=== PATIENT | female | born 1950 | race Caucasian/White ===

== ENCOUNTER 2020-12-03 23:10 | Inpatient (IN) | payer MEDICARE, SELFPAY ==
[2020-12-03 23:12] VITALS: BP 159/63; PULSE 72; RESP 17; TEMP 36.9; O2SAT 99; BMI 32.5
[2020-12-03 23:18] VITALS: BP 159/63; PULSE 70; RESP 18; O2SAT 99
[2020-12-03 23:19] VITALS: PULSE 71
--- NOTE | 2020-12-03 23:25 | XRR_ITS ---
PROCEDURE INFORMATION: Exam: XR Left Hip Exam date and time: 12/03/2020 11:30 PM Age: 70 years old Clinical indication: Injury or trauma; Fall; Blunt trauma (contusions or hematomas); Left; Prior surgery; Surgery type: Lt hip TECHNIQUE: Imaging protocol: XR Left hip. Views: 1 view hip with pelvis when performed. COMPARISON: No relevant prior studies available. FINDINGS: Bones/joints: Status post left hip arthroplasty. No fracture of the proximal femur. Soft tissues: No acute abnormality of the soft tissues. XR/XR hip LT 1V wo/w pel [id number] IMPRESSION: 1. Status post left hip arthroplasty. No radiographic evidence of prosthetic loosening. 2. No fracture of the proximal femur.
--- NOTE | 2020-12-03 23:25 | ED_ITS ---
Documented by User: OSCAR Patel 12/07/20 07:03 HPI - Fall General: Chief Complaint: Extremity Injury, Lower Stated Complaint: left knee pain Time Seen by Provider: 12/03/20 23:12 Source: patient Mode of arrival: EMS Limitations: no limitations History of Present Illness: HPI Narrative: Patient is a very nice 70-year-old female who arrives to the ED today via EMS for evaluation following a fall. Patient tells me she walked out into her back deck and states the rain had made the deck slippery and she slipped and fell. Reports she twisted and landed onto her left leg and it bent backwards . She states she then stuck her head. No LOC. She states she noticed a headache and some neck pain earlier today prior to the fall but she is not having either now. Patient is tearful as she attended the family night for her mother's today and has her scheduled for tomorrow. PMH significant for COPD, obesity, CAD, DM, non-alcoholic hepatic cirrhosis, CHF, anemia thought to be secondary to esophageal varices Current medications include escitalopram, nadolol, ferrous sulfate, furosemide, flexeril, metformin, spironolactone, oxycodone, atorvastatin, requip, insulin, and esomeprazole complaint: fall Onset (ago): hour(s) Fall from: standing Place fall occurred: home Loss of consciousness: None Prolonged down time: no Symptoms prior to fall: none Context: tripped/slipped (wet surface ) Location of injury - extremities: Right: knee Associated symptoms-after fall: Reports headache(s) (states she had a LING today prior to the fall); Denies chest pain, lightheadedness or neck pain Review of Systems Const: Denies: fever(s) Eyes: Denies: change in vision Card: Denies: chest pain, palpitations, lightheadedness, syncope or pre- syncope Resp: Denies: dyspnea GI: Denies: nausea or vomiting Musc: Reports: joint pain (R knee) and joint swelling (R knee); Denies: neck pain or back pain Neuro: Reports: headache(s) (states she had a LING today prior to the fall); Denies: numbness in extremities, sensory changes or frequent falls FOR[facility], [facility] ED PFSH: Medical History (Updated 12/09/20 @ 00:01 by ) CAD (coronary artery disease) Chronic iron deficiency anemia Congestive heart failure Femoral distal fracture Gastric varices History of esophageal varices Hypertension 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 Supracondylar fracture of left femur Thrombocytopenia Surgical History (Updated 12/06/20 @ 07:44 by Marcio Barker MD) History of appendectomy History of bilateral hip replacements History of cholecystectomy History of coronary artery bypass graft x 1 History of left knee replacement History of total hysterectomy Family History (Updated 12/04/20 @ 03:05 by Gabriel Anderson MD) Mother CAD (coronary artery disease) Diabetes CHF (congestive heart failure) Family/Other Cancer Social History (Updated 12/04/20 @ 03:05 by Gabriel Anderson MD) Smoking and tobacco status: never smoked Second hand smoke exposure: No Alcohol intake: never Physical Exam Const: COMMON NORMALS: no acute distress, patient oriented x3, no limitations and alert GENERAL APPEARANCE: cooperative NUTRITIONAL APPEARANCE: obese ORIENTATION/CONSCIOUSNESS: Yes awake, Yes oriented to person, Yes oriented to place and Yes oriented to time HENMT: COMMON NORMALS: normocephalic HEAD & SCALP: normocephalic and other (small posterior hematoma) Eye: COMMON NORMALS: Equal, round and reactive pupils present and EOMs intact bilaterally GENERAL EYE: appearance normal, both eyes and all related structures PUPIL: Yes Equal, round and reactive pupils present Neck/C-Spine: COMMON NORMALS: full ROM GENERAL: Yes normal visual inspection CERVICAL SPINE: Yes cervical ROM normal, No pain with cervical ROM and No Cervical spine tenderness Chest: COMMONS NORMALS: normal inspection of the chest and normal palpation of entire chest wall Resp: COMMON NORMALS: normal respiratory effort and clear to auscultation bi laterally AUSCULTATION: clear to auscultation bilaterally Cardio: COMMON NORMALS: regular rate and regular rhythm RATE: regular rate RHYTHM: regular rhythm Back/Pelvis: COMMON NORMALS: thoracic and lumbar spine normal to inspection, no thoracic nor lumbar tenderness and thoraco-lumbar ROM normal Extremity: NARRATIVE EXTREMITY EXAM: pt with tenderness to mid to distal femur and throughout her R knee joint; there is diffuse swelling and edema around the R knee; incision present from prior TKA; no hip pain present; distal pulses present and equal bilaterally; sensory intact. Neuro: SABRINA COMA SCALE: document GCS findings Sabrina coma scale eye opening: Spontaneous Sabrina coma scale verbal response: Orientated Sabrina coma scale motor response: Obey commands Sabrina coma scale total score: 15 COMMON NORMALS: patient oriented x3 SENSORIUM/ORIENTATION: Yes alert, Yes oriented to person, Yes oriented to place and Yes oriented to time Skin: COMMON NORMALS: no rashes or lesions noted GENERAL SKIN EXAM: no rashes or lesions noted Course Consultations: Consultation #1: Dr. Abreu spoke to Dr. Barker who will consult on patient while in hospital Consultation #2: Dr. Abreu spoke to Dr. Anderson who accepts admission Vital Signs: Vital signs: Vital Signs Temperature 98.0 F 12/08/20 07:18 Pulse Rate 78 12/08/20 12:21 Respiratory Rate 16 12/08/20 12:21 Blood Pressure 143/68 12/08/20 07:18 Pulse Oximetry 97 12/08/20 12:21 MDM - Fall Imaging Data^: CT Head: Radiologist's impression: [address] [address] [address] Scan Report Signed Patient: tari campos Unit #: [id number] : 1950 Age/Sex: 70 / F ADM Date: 12/03/20 Loc: ER Room/Bed: Attending Dr: Ordering Provider/Ordering MD: Wendy Mckeon Date of Service: 12/04/20 Procedure(s): CT head wo con* [id number] Accession Number(s): [id number] Report Number: [id number] PROCEDURE INFORMATION: Exam: CT Head Without Contrast Exam date and time: 12/04/2020 12:29 AM Age: 70 years old Clinical indication: Injury or trauma; Fall; Blunt trauma (contusions or hematomas) TECHNIQUE: Imaging protocol: Computed tomography of the head without contrast. Radiation optimization: All CT scans at this facility use at least one of these dose optimization techniques: automated exposure control; mA and/or kV adjustment per patient size (includes targeted exams where dose is matched to clinical indication); or iterative reconstruction. COMPARISON: No relevant prior studies available. RADIATION DOSE METRICS: Total DLP (mGy-cm): 794.77 FINDINGS: Brain: Mild parenchymal volume loss noted. There is decreased attenuation of the periventricular white matter, consistent with mild chronic microangiopathic white matter disease. No intracranial hemorrhage noted. No parenchymal edema identified. Cerebral ventricles: No ventriculomegaly. Bones/joints: Unremarkable. No acute fracture. Paranasal sinuses: Visualized sinuses are unremarkable. No fluid levels. Mastoid air cells: Unremarkable as visualized. No mastoid effusion. Soft tissues: Unremarkable. CT/CT head wo con* [id number] IMPRESSION: No acute intracranial abnormality demonstrated. Radiation Dose CTDIVOL = (mGy): DLP = 794.77 (mGy-cm) Dictated By: Eliseo Delvalle MD Signed By: Eliseo Delvalle MD Signed Date/Time: 12/04/2058 DD/ CT cervical: Radiologist's impression: [address] [address] [address] Scan Report Signed Patient: tari campos Unit #: [id number] : 1950 Acct#:OV [id number] Age/Sex: 70 / F ADM Date: 12/03/20 Loc: ER Room/Bed: Attending Dr: Ordering Provider/Ordering MD: Wendy Mckeon Date of Service: 12/04/20 Procedure(s): CT cervical spin wo con* [id number] Accession Number(s): [id number] Report Number: [id number] PROCEDURE INFORMATION: Exam: CT Cervical Spine Without Contrast Exam date and time: 12/04/2020 12:29 AM Age: 70 years old Clinical indication: Injury or trauma; Fall; Blunt trauma TECHNIQUE: Imaging protocol: Computed tomography images of the cervical spine without contrast. Radiation optimization: All CT scans at this facility use at least one of these dose optimization techniques: automated exposure control; mA and/or kV adjustment per patient size (includes targeted exams where dose is matched to clinical indication); or iterative reconstruction. COMPARISON: No relevant prior studies available. RADIATION DOSE METRICS: Total DLP (mGy-cm): 914.25 FINDINGS: Bones/joints: Vertebral body heights are preserved. No compression fractures are noted. Vertebral alignment is physiologic. Degenerative facet joint changes. Discs/Spinal canal/Neural foramina: Disc heights are preserved. No severe intervertebral disc narrowing. No severe spinal canal stenosis at any level. Lungs: The lung apices are unremarkable. Pleural spaces: No apical pneumothorax demonstrated. Soft tissues: The soft tissues appear unremarkable. CT/CT cervical spin wo con* [id number] IMPRESSION: 1. Mild degenerative changes of the cervical spine are noted. 2. No acute abnormality demonstrated. Radiation Dose CTDIVOL = (mGy): DLP = 914.25 (mGy-cm) Dictated By: Eliseo Delvalle MD Signed By: Eliseo Delvalle MD Signed Date/Time: 12/04/2057 DD/ XR L hip/femur : Radiologist's impression: [address] [address] XRay Report Signed Patient: tari campos Unit #: [id number] : 1950 Age/Sex: 70 / F ADM Date: 12/03/20 Loc: ER Room/Bed: Attending Dr: Ordering Provider/Ordering MD: Wendy Mckeon Date of Service: 12/03/20 Procedure(s): XR knee LT 3V* [id number] Accession Number(s): [id number] Report Number: [id number] PROCEDURE INFORMATION: Exam: XR Left Knee Exam date and time: 12/03/2020 11:30 PM Age: 70 years old Clinical indication: Injury or trauma; Fall; Blunt trauma; Left; Prior surgery; Surgery type: Lt knee; Additional info: Fall/pain TECHNIQUE: Imaging protocol: XR Left knee. Views: 3 views. COMPARISON: No relevant prior studies available. FINDINGS: Bones/joints: Status post left knee arthroplasty. Acute displaced, mildly comminuted fracture of the distal shaft of the femur. There is approximately 3 cm of separation and overlap of the major distal fracture fragments. Proximal tibia and proximal fibula appear intact. Soft tissues: Soft tissue edema noted. XR/XR knee LT 3V* [id number] IMPRESSION: 1. Status post left knee arthroplasty. 2. Acute displaced mildly comminuted fracture of the distal shaft of the femur. Dictated By: Eliseo Delvalle MD Signed By: Eliseo Delvalle MD Signed Date/Time: 12/04/2041 DD/ Discharge Plan Discharge Patient Disposition: Admitted As Inpatient Admit Provider: Marcio Barker Clinical Impression: Supracondylar fracture of left femur Condition: Stable Discharge Diet: Diabetic Discharge Activity: As per PT/OT instructions Coding Level of Care Code ED Wearing Apparel Shaker for Chg Fwd Exam Comprehensive Documented by User: Rajat Abreu DO 12/17/20 18:49 HPI - Fall General: Chief Complaint: Extremity Injury, Lower Stated Complaint: left knee pain Time Seen by Provider: 12/03/20 23:12 PFSH ED PFSH: Medical History (Updated 12/09/20 @ 00:01 by ) CAD (coronary artery disease) Chronic iron deficiency anemia Congestive heart failure Femoral distal fracture Gastric varices History of esophageal varices Hypertension 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 Supracondylar fracture of left femur Thrombocytopenia Surgical History (Updated 12/06/20 @ 07:44 by Marcio Barker MD) History of appendectomy History of bilateral hip replacements History of cholecystectomy History of coronary artery bypass graft x 1 History of left knee replacement History of total hysterectomy Family History (Updated 12/04/20 @ 03:05 by Gabriel Anderson MD) Mother CAD (coronary artery disease) Diabetes CHF (congestive heart failure) Family/Other Cancer Social History (Updated 12/04/20 @ 03:05 by Gabriel Anderson MD) Smoking and tobacco status: never smoked Second hand smoke exposure: No Alcohol intake: never Course Vital Signs: Vital signs: Vital Signs Temperature 98.0 F 12/08/20 07:18 Pulse Rate 78 12/08/20 12:21 Respiratory Rate 16 12/08/20 12:21 Blood Pressure 143/68 12/08/20 07:18 Pulse Oximetry 97 12/08/20 12:21 MDM - Fall MDM Narrative: Medical decision making narrative: 70-year-old female seen by Mrs. MckeonANNY Vann. I agree with her history, evaluation, and treatment. This lady was found to have a periprosthetic distal femur fracture on x-ray. Her hemoglobin is 7.4 she'll be admitted to the hospitalist service, with orthopedic consultation both of been consulted from the ER, and have accepted. Discharge Plan Discharge Patient Disposition: Admitted As Inpatient Admit Provider: Marcio Barker Clinical Impression: Supracondylar fracture of left femur Condition: Stable Discharge Diet: Diabetic Discharge Activity: As per PT/OT instructions Coding Level of Care Code ED Wearing Apparel Shaker for Chg Fwd Exam Comprehensive
--- NOTE | 2020-12-03 23:44 | ECG_ITS ---
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 Measurements Intervals [place] Rate: 69 P: 61 NE: 139 QRS: 4 QRSD: 100 T: 68 QT: 430 QTc: 464 Interpretive Statements SINUS RHYTHM LOW QRS VOLTAGE IN PRECORDIAL LEADS [QRS DEFLECTION < 1.0 mV IN CHEST LEADS] MINIMAL VOLTAGE CRITERIA FOR LVH, CONSIDER NORMAL VARIANT [MEETS CRITERIA IN ONE OF: R(aVL), S(V1), R(V5), R(V5/V6)+S(V1)] NONSPECIFIC T-WAVE ABNORMALITY No previous ECG available for comparison Electronically Signed On 12-04-2020 19:40:25 SEAFOOD MANAGER by Reynold Hearn M.D. [id number]
--- NOTE | 2020-12-03 23:44 | XRR_ITS ---
PROCEDURE INFORMATION: Exam: XR Chest Exam date and time: 12/03/2020 11:49 PM Age: 70 years old Clinical indication: Injury or trauma; Fall; Blunt trauma (contusions or hematomas); Prior surgery; Additional info: Admission/surgery clearance TECHNIQUE: Imaging protocol: XR of the chest Views: 1 view. COMPARISON: No relevant prior studies available. FINDINGS: Lungs: No consolidative pulmonary infiltrates are noted. Pleural spaces: Unremarkable. No pleural effusion. No pneumothorax. Heart/Mediastinum: No cardiomegaly. Bones/joints: Right shoulder arthroplasty. Median sternotomy noted. Soft tissues: 12 mm probable nipple shadow at the right lung base. XR/XR chest 1V portable [id number] IMPRESSION: No acute cardiopulmonary disease demonstrated.
[2020-12-04] VITALS (34 sets, daily range): BP systolic 112–169; BP diastolic 45–81; PULSE 56–74; RESP 14–20; TEMP 36.1–37.3; O2SAT 94–100
--- NOTE | 2020-12-04 | SCC_ITS ---
Procedure Done: Open reduction and internal fixation left distal femur 90.2 seconds of fluoroscopic guidance, for a cumulative dose of 5.8 mGy, was provided to Dr. Barker by the radiology department. C-arm images of the LEFT femur were saved for the patient's permanent record. JAMES [facility]. [facility] VA MEDICAL CENTERLyudmila
--- NOTE | 2020-12-04 | XR_ITS ---
WS: [id number] XR femur LT min 2V* [id number] REASON FOR EXAM: ORIF DISTAL FEMUR FINDINGS: There is been lateral plate and screw fixation of previously demonstrated complex supracondylar fract ure involving the left knee arthroplasty. Instrumentation and bony structure in proper alignment and position. XR/XR femur LT min 2V* [id number] IMPRESSION: Distal left fracture fixation as above.
--- NOTE | 2020-12-04 00:06 | CTR_ITS ---
PROCEDURE INFORMATION: Exam: CT Cervical Spine Without Contrast Exam date and time: 12/04/2020 12:29 AM Age: 70 years old Clinical indication: Injury or trauma; Fall; Blunt trauma TECHNIQUE: Imaging protocol: Computed tomography images of the cervical spine without contrast. Radiation optimization: All CT scans at this facility use at least one of these dose optimization techniques: automated exposure control; mA and/or kV adjustment per patient size (includes targeted exams where dose is matched to clinical indication); or iterative reconstruction. COMPARISON: No relevant prior studies available. RADIATION DOSE METRICS: Total DLP (mGy-cm): 914.25 FINDINGS: Bones/joints: Vertebral body heights are preserved. No compression fractures are noted. Vertebral alignment is physiologic. Degenerative facet joint changes. Discs/Spinal canal/Neural foramina: Disc heights are preserved. No severe intervertebral disc narrowing. No severe spinal canal stenosis at any level. Lungs: The lung apices are unremarkable. Pleural spaces: No apical pneumothorax demonstrated. Soft tissues: The soft tissues appear unremarkable. CT/CT cervical spin wo con* [id number] IMPRESSION: 1. Mild degenerative changes of the cervical spine are noted. 2. No acute abnormality demonstrated. Radiation Dose CTDIVOL = (mGy): DLP = 914.25 (mGy-cm)
--- NOTE | 2020-12-04 00:06 | CTR_ITS ---
PROCEDURE INFORMATION: Exam: CT Head Without Contrast Exam date and time: 12/04/2020 12:29 AM Age: 70 years old Clinical indication: Injury or trauma; Fall; Blunt trauma (contusions or hematomas) TECHNIQUE: Imaging protocol: Computed tomography of the head without contrast. Radiation optimization: All CT scans at this facility use at least one of these dose optimization techniques: automated exposure control; mA and/or kV adjustment per patient size (includes targeted exams where dose is matched to clinical indication); or iterative reconstruction. COMPARISON: No relevant prior studies available. RADIATION DOSE METRICS: Total DLP (mGy-cm): 794.77 FINDINGS: Brain: Mild parenchymal volume loss noted. There is decreased attenuation of the periventricular white matter, consistent with mild chronic microangiopathic white matter disease. No intracranial hemorrhage noted. No parenchymal edema identified. Cerebral ventricles: No ventriculomegaly. Bones/joints: Unremarkable. No acute fracture. Paranasal sinuses: Visualized sinuses are unremarkable. No fluid levels. Mastoid air cells: Unremarkable as visualized. No mastoid effusion. Soft tissues: Unremarkable. CT/CT head wo con* [id number] IMPRESSION: No acute intracranial abnormality demonstrated. Radiation Dose CTDIVOL = (mGy): DLP = 794.77 (mGy-cm)
--- NOTE | 2020-12-04 00:25 | CTR_ITS ---
PROCEDURE INFORMATION: Exam: CT Left Lower Extremity Without Contrast, Knee Exam date and time: 12/04/2020 12:29 AM Age: 70 years old Clinical indication: Injury or trauma; Fracture, traumatic; Displaced; Femur; Left; Prior surgery; Surgery type: Tkr; Patient HX: Fall last night. C/O severe pain. Fracture on plain film. ; Additional info: Distal femur FX TECHNIQUE: Imaging protocol: CT of the Left lower extremity without contrast was performed. Exam focused on the knee. Radiation optimization: All CT scans at this facility use at least one of these dose optimization techniques: automated exposure control; mA and/or kV adjustment per patient size (includes targeted exams where dose is matched to clinical indication); or iterative reconstruction. COMPARISON: CR XR knee LT 3V* [id number] 12/03/2020 11:28 PM RADIATION DOSE METRICS: Total DLP (mGy-cm): 1184.76 FINDINGS: Bones/joints: Total knee prosthesis in good alignment without obvious loosening. No extension of the oblique comminuted fracture of the distal femoral diametaphysis into the area of attachment of the femoral component of the prosthesis to the bone. Two posterior butterfly fracture fragments of the femoral metaphysis evident along the area of mild over-riding of the femoral fracture; [id number] medial displacement of the distal femur in relationship to the femoral shaft and slight posterior and lateral angulation of the fracture. Soft tissues: Mild deep soft tissue hematoma formation along the femoral fracture. Multiple areas of stranding in the subcutaneous fat. CT/CT lower leg LT wo con* [id number] IMPRESSION: Oblique comminuted distal femoral fracture detailed above. Intact total knee prosthesis. Radiation Dose CTDIVOL = (mGy): DLP = 1184.76 (mGy-cm)
--- NOTE | 2020-12-04 01:45 | PC.NURSE ---
Patient states her pain is an 8 on a scale of 1-10 but does not want any pain medication at this time.
[2020-12-04 02:02] LABS: Basophils % 0.5 %; Eosinophils # 0.1 10^3/uL (0.0-0.8); Eosinophils % 2.5 %; Hematocrit 25.1 % (37.0-47.0); Hemoglobin 7.9 g/dL (11.5-15.3); Lymphocytes # 0.6 10^3/uL (0.8-4.8); Lymphocytes % 10.4 %; Mean Corpuscular HGB Conc 31.5 g/dL (30.0-36.0); Mean Corpuscular Hemoglobin 28.4 pg (28.0-34.0); Mean Corpuscular Volume 90.3 fL (81-99); Mean Platelet Volume 11.4 fL (7.4-10.4); Monocytes # 0.5 10^3/uL (0.2-0.9); Monocytes % 9.2 %; Neutrophils # 4.37 10^3/uL (1.8-7.7); Nucleated Red Blood Cells % 0 %; Platelet Count 106 10^3/cmm (130-400); Red Blood Count 2.78 10^6/uL (4.1-5.3); Red Cell Distribution Width 15.3 % (12.1-15.1); White Blood Count 5.7 10^3/uL (4.0-10.0)
[2020-12-04 02:19] LABS: Alanine Aminotransferase 21 U/L (0-33); Alkaline Phosphatase 112 IU/L (35-105); Anion Gap 11.9 (5-19); Aspartate Amino Transferase 25 U/L (0-32); Blood Urea Nitrogen 18 mg/dL (8-23); Calcium 8.1 mg/dL (8.5-10.5); Carbon Dioxide 26 mmol/L (22-29); Chloride 101 mmol/L (98-107); Globulin 2.8 g/dL (1.3-4.6); Glucose 269 mg/dL (65-115); Osmolality Calculated 291 mOsm/kg (285-295); Potassium 3.9 mmol/L (3.5-5.1); Sodium 135 mmol/L (136-145); Total Bilirubin 1.1 mg/dL (0.15-1.2); Total Protein 5.8 g/dL (6.6-8.7)
[2020-12-04 02:36] LABS: Slide Review Slide Review Perform
[2020-12-04] MEDS: morphine 4 mg/mL SDV 1 mL IVP ×2 (02:38→05:45)
--- NOTE | 2020-12-04 02:54 | P.HP_ITS ---
Providers/Chief Complaint Admitting Physician: Marcio Barker MD Chief Complaint: left knee pain History of Present Illness tari campos is a 70 year old female with a past medical history of CAD, CABG x1, noninsulin-dependent type 2 diabetes mellitus, congestive heart failure, FLETCHER, history of esophageal varices, history of gastric varices, history of chronic anemia, chronic thrombocytopenia who presents to [facility] for f ollow-up. Patient tells me that she lives in [place], today she was attending the services for her mother, who , when she got to her residence in [place], she stepped outside and slipped and fell, here in the emergency room she was found to have a oblique comminuted distal femoral fracture. Hospitalist team was called for medical management. Patient denies any chest pain, any palpitations, any shortness of breath, no fevers, no chills, no known exposure to COVID-19. She did have a recent EGD, for ablation of gastritis/gastric varices, and monitoring of her esophageal and gastric varices, she tells me that she is due for another ablation in 2 weeks. Review of Systems Const: Denies: fever(s), chills, fatigue or malaise Eyes: Denies: change in vision or blurry vision ENMT: Denies: nasal congestion Card: Denies: chest pain or palpitations Resp: Denies: dyspnea, productive cough, non-productive cough or wheezing GI: Denies: abdominal pain, nausea, vomiting, hematemesis, diarrhea, co nstipation, hematochezia or melena : Denies: flank pain, dysuria or urinary frequency Musc: Reports: extremity pain; Denies: neck pain or back pain Skin/Breast: Denies: rash Neuro: Denies: headache(s), dizziness or vertigo Endo: Denies: polyuria or polydipsia Medications/Allergies Home Medications Medication Instructions Recorded Confirmed Last Taken Type cyclobenzaprine [Flexeril] 10 mg PO PRN 12/04/20 12/04/20 Unknown History escitalopram oxalate 10 mg PO BID 12/04/20 12/04/20 Unknown History esomeprazole magnesium [Nexium] 40 mg PO DAILY 12/04/20 12/04/20 Unknown History ferrous sulfate 324 mg PO DAILY 12/04/20 12/04/20 Unknown History furosemide [Lasix] 20 mg PO DAILY 12/04/20 12/04/20 Unknown History insulin NPH human semi-syn 50 unit SUBCUT DIRECTED 12/04/20 12/04/20 Unknown History [Novolin N (Semi-Synthetic)] metformin 500 mg PO BID 12/04/20 12/04/20 Unknown History nadolol 20 mg PO DAILY 12/04/20 12/04/20 Unknown History ropinirole 0.5 mg PO BEDTIME 12/04/20 12/04/20 Unknown History spironolactone 25 mg PO BID 12/04/20 12/04/20 Unknown History Allergies Allergy/AdvReac Type Severity Reaction Status Date / Time cefaclor [From [facility]] Allergy ALGY-Anaphy Verified 12/03/20 23:18 laxis PFSH Acute PFSH: Medical History (Updated 12/04/20 @ 03:09 by Gabriel Anderson MD) Chronic iron deficiency anemia Gastric varices History of esophageal varices Hypertension Non-insulin dependent type 2 diabetes mellitus Thrombocytopenia Surgical History (Updated 12/04/20 @ 03:09 by Gabriel Anderson MD) History of appendectomy History of bilateral hip replacements History of cholecystectomy History of coronary artery bypass graft x 1 History of left knee replacement History of total hysterectomy Family History (Updated 12/04/20 @ 03:05 by Gabriel Anderson MD) Mother CAD (coronary artery disease) Diabetes CHF (congestive heart failure) Family/Other Cancer Social History (Updated 12/04/20 @ 03:05 by Gabriel Anderson MD) Smoking and tobacco status: never smoked Second hand smoke exposure: No Alcohol intake: never Substance/Drug Use: never Vitals/I&O/Wt Last Vital Signs Temp 98.5 F 12/04/20 02:32 Pulse 74 12/04/20 02:32 Resp 17 12/04/20 02:38 BP 136/61 12/04/20 02:32 Pulse Ox 97 12/04/20 02:38 Weight last 48 hrs Weight 86.183 kg Physical Exam Const: COMMON NORMALS: no acute distress and patient oriented x3 GENERAL APPEARANCE: cooperative and comfortable HENMT: COMMON NORMALS: normocephalic HEAD & SCALP: normocephalic Eye: COMMON NORMALS: Equal, round and reactive pupils present and EOMs intact bilaterally GENERAL EYE: appearance normal, both eyes and all related structures PUPIL: Yes Equal, round and reactive pupils present Neck/C-Spine: COMMON NORMALS: full ROM, no lymphadenopathy, no JVD and Thyroid normal THYROID: Thyroid normal Lymph: LYMPHATIC: no lymphadenopathy noted Resp: COMMON NORMALS: normal respiratory effort, No retractions, No use of accessory muscles and clear to auscultation bilaterally AUSCULTATION: clear to auscultation bilaterally Cardio: COMMON NORMALS: no JVD, regular rate, regular rhythm, S1 normal heart sound present, S2 normal heart sound present, No gallops present (Cardio), No clicks present (Cardio) and No murmurs present (Cardio) RATE: regular rate RHYTHM: regular rhythm HEART SOUNDS: S1 normal heart sound present and S2 normal heart sound present GI: COMMON NORMALS: Normal to inspection, nondistended, normoactive bowel sounds present, Soft to palpation, non-tender and No hepatosplenomegaly present PALPATION: Yes Soft to palpation and Yes No hepatosplenomegaly present Extremity: COMMON NORMALS: normal to inspection, full ROM and no pedal edema NARRATIVE EXTREMITY EXAM: Left hand arm in a splint Neuro: COMMON NORMALS: patient oriented x3, CN's II-XII intact bilaterally and no focal motor deficits Psych: COMMON NORMALS: mental status grossly normal, Normal thought process present and cooperative THOUGHT PROCESS: Normal thought process present Skin: OTHER: Multiple areas of bruising Urinary Catheter Management^: Pandey: Cath Placed During This Visit: yes Urinary Catheter Date of Insertion: 12/04/20 Urinary Catheter Time of Insertion: 01:44 Data : 12/04/20 01:38 12/04/20 01:38 A&P Assessment and plan (1) Femoral distal fracture: -Secondary to fall, oblique comminuted distal femoral fracture, intact total knee prosthesis -Dr. Barker consulted -SCDs for DVT prophylaxis, anticoagulation contraindicated given esophageal, gastric varices, anemia, thrombocytopenia -Full code -PT OT -Morphine for pain control Status: Acute (2) Thrombocytopenia: Secondary to Fletcher, liver cirrhosis Status: Acute (3) Chronic iron deficiency anemia: Secondary to gastritis, gastric varices, she denies a history of esophageal variceal bleed, had a ablation a few weeks ago is due for another ablation in another 2 weeks, managed in [place] Status: Acute (4) Hypertension: Status: Acute (5) Non-insulin dependent type 2 diabetes mellitus: Continue low-dose sliding scale Status: Acute (6) Gastric varices: With history of ligation Status: Acute (7) History of esophageal varices: No history of band, ligation, no history of bleed Status: Acute (8) Liver cirrhosis secondary to FLETCHER: Managed in [place] Status: Acute (9) Congestive heart failure: She is unsure what type of heart failure she has, is on spironolactone and Lasix Status: Acute (10) History of coronary artery bypass graft x 1: Status: Inactive (11) CAD (coronary artery disease): No chest pain complaints Status: Acute Attestations Medical Necessity Statement*: Patient requires hospitalization, inpatient, greater than 2 midnights, for distal femur fracture Coding Level of Care 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
--- NOTE | 2020-12-04 03:22 | USCV_ITS ---
Crissy Garzon Age: 70 Gender: F : 1950 Exam Date: 12/04/2020 08:52 Ordering Phys: Gabriel Anderson MD Technologist: Susanne Puckett Exam Location: [facility] Indication: PRE-OP, CHF BP: 146 / 74 HR: 63 Rhythm: Sinus Technical Quality: Suboptimal MEASUREMENTS (Male / Female) Normal Values 2D ECHO LV Diastolic Diameter PLAX 4.1 cm 4.2 - 5.9 / 3.9 - 5.3 cm LV Systolic Diameter PLAX 2.6 cm LV Chamber Size 5.1 cm IVS Diastolic Thickness 1.2 cm 0.6 - 1.0 / 0.6 - 0.9 cm IVS Systolic Thickness 1.7 cm LVPW Diastolic Thickness 1.3 cm 0.6 - 1.0 / 0.6 - 0.9 cm LVPW Systolic Thickness 1.7 cm RV Chamber Size 2.6 cm LVOT Diameter 1.8 cm LV Ejection Fraction 2D Teich 68.3 % LA Diameter 3.9 cm LA Width 3.1 cm LA Height 5.4 cm RA Width 2.8 cm RA Height 4.4 cm Aorta at Sinotubular Diameter 2.1 cm M-MODE LV Diastolic Diameter MM 5.5 cm 4.2 - 5.9 / 3.9 - 5.3 cm LV Systolic Diameter MM 3.3 cm LV Ejection Fraction MM Teich 69.3 % IVS Diastolic Thickness MM 1.1 cm 0.6 - 1.0 / 0.6 - 0.9 cm IVS Systolic Thickness MM 1.4 cm LVPW Diastolic Thickness MM 1.1 cm 0.6 - 1.0 / 0.6 - 0.9 cm LVPW Systolic Thickness MM 1.9 cm RV Diastolic Diameter MM 1.4 cm Aortic Annulus Diameter 2.8 cm LA Ao Ratio MM 1.7 MV E Point Septal Separation 0.4 cm DOPPLER AV Peak Velocity 132.0 cm/s LVOT Peak Velocity 96.0 cm/s AV Area Cont Eq vti 2.1 cm squared AV Area Cont Eq pk 1.9 cm squared MV Area PHT 4.0 cm squared Mitral E to A Ratio 1.4 MV E' Velocity 55.0 cm/s Mitral E to MV E' Ratio 13.2 Mitral E to LV E' Lateral Ratio 11.2 Mitral E to LV E' Septal Ratio 16.2 TR Peak Velocity 260.0 cm/s TR Peak Gradient 27.0 mmHg TV Peak E Velocity 60.0 cm/s Right Atrial Pressure 3.0 mmHg Pulmonary Artery Systolic Pressu 30.0 mmHg PV Peak Velocity 83.0 cm/s RV Acceleration Time 0.2 s RV Ejection Time 0.3 s RV AcT/ET 0.6 FINDINGS Left Ventricle Possibly normal LV size and ejection fraction of 55%. Segmental wall motion analysis difficult because of the poor ultrasonic window. No gross abnormalities noted Right Ventricle Possibly of normal size ejection fraction Right Atrium Normal right atrial size. Left Atrium Mildly increased left atrial size. Mitral Valve Thickened mitral valve. Trace to mild mitral valve regurgitation. Mild mitral annular calcification. Aortic Valve No gross abnormalities noted Tricuspid Valve No gross abnormalities noted Pulmonic Valve Could not be visualized well Pericardium Trivial pericardial effusion. Aorta Normal aortic annulus size. CONCLUSIONS Possibly normal LV size and ejection fraction of 55%. Segmental wall motion analysis difficult because of the poor ultrasonic window. No gross abnormalities noted. Thickened mitral valve. Trace to mild mitral valve regurgitation. Mild mitral annular calcification. Trivial pericardial effusion. The aortic and the tricuspid leaflets appear to have normal morphology. Technically very limited study because of the poor ultrasonic window-only parasternal and subcostal views were obtained Dr Reynold Hearn MD [facility] (Electronically Signed) Final Date: 04 December 2020 18:29 S
[2020-12-04] MEDS: sodium chloride 0.9% 1,000 ML 100 ML IV (04:08)
[2020-12-04] MEDS: famotidine 20 mg/2 mL INJ IVP (05:44)
[2020-12-04 06:35] LABS: Glucose Point of Care 332 mg/dL (70-110)
[2020-12-04 07:05] LABS: INR 1.43 (0.8-1.2)
[2020-12-04 07:29] LABS: NT Pro B Type Natriuretic Pept 472 pg/mL (0-125)
--- NOTE | 2020-12-04 07:58 | P.PN_ITS ---
Subjective Subjective: Interval history: Patient reports that she went outside of the trailer to vomit when she fell and broke her femur. Reports that she once in a while gets episodes of nausea and vomiting for a long time. She just recently had gastric varices ablated and requires to have repeat procedure in 2 weeks. She is a very high risk for bleeding and anticoagulation, NSAIDs or steroid should be absolutely avoided. She takes oxycodone at home for pain. Reports that within the last month she has been given azithromycin and steroids. Reports that on October 25 she was diagnosed with UTI and treated with 1 week of Bactrim. She had 1vessel CABG in and reports that since then she has been doing well and denied any chest pain even with exertion. Vitals/I&O/Wt Last Vital Signs Temp 98.6 F 12/04/20 06:55 Pulse 66 12/04/20 06:55 Resp 18 12/04/20 06:55 BP 146/74 12/04/20 06:55 Pulse Ox 94 12/04/20 06:55 12/03/20 12/04/20 12/04/20 22:59 06:59 14:59 Intake Total 0 / 0 Output Total 0 / 0 Balance 0 / 0 Weight last 48 hrs Weight 86.183 kg Physical Exam Narrative: EXAM NARRATIVE: Lungs are clear and heart is regular. Abdomen is soft nontender with positive bowel sounds. Trace lower extremity edema Urinary Catheter Management^: Pandey: Cath Placed During This Visit: yes Urinary Catheter Date of Insertion: 12/04/20 Urinary Catheter Time of Insertion: 01:44 Data : 12/04/20 01:38 12/04/20 01:38 A&P Assessment and plan (1) Femoral distal fracture: -Secondary to fall, oblique comminuted distal femoral fracture, intact total knee prosthesis -Dr. Barker consulted -SCDs for DVT prophylaxis, anticoagulation contraindicated given esophageal, gastric varices, anemia, thrombocytopenia -Full code -PT OT -Morphine for pain control Status: Acute (2) Thrombocytopenia: Secondary to Fletcher, liver cirrhosis Status: Acute (3) Chronic iron deficiency anemia: Secondary to gastritis, gastric varices, she denies a history of esophageal variceal bleed, had a ablation a few weeks ago is due for another ablation in another 2 weeks, managed in [place] Status: Acute (4) Hypertension: Status: Acute (5) Non-insulin dependent type 2 diabetes mellitus: Continue low-dose sliding scale Status: Acute (6) Gastric varices: With history of ligation Status: Acute (7) History of esophageal varices: No history of band, ligation, no history of bleed Status: Acute (8) Liver cirrhosis secondary to FLETCHER: Managed in [place] Status: Acute (9) Congestive heart failure: She is unsure what type of heart failure she has, is on spironolactone and Lasix Status: Acute (10) History of coronary artery bypass graft x 1: Status: Inactive (11) CAD (coronary artery disease): No chest pain complaints Status: Acute Additional A&P Information PLAN: Obtain UA to rule out UTI. We will transfuse patient with 1 unit of PRBC prior to surgery and patient will need to have couple of more units available. From cardiac standpoint she appears to have acceptable risk as she denies being symptomatic and does not report shortness of breath or chest pain. Avoid any anticoagulation, NSAIDs or steroids. Patient understands risks and benefits including life-threatening bleed or DVT/PE formation and stroke and agrees to proceed. Continue Lasix and decrease IV fluids to 50 mL/h. Attestations Medical Necessity Statement*: Patient with distal femur fracture requires close inpatient monitoring and treatment. 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
[2020-12-04] MEDS: escitalopram 10 mg Tablet PO ×2 (09:21→17:34)
[2020-12-04] MEDS: pantoprazole DR 40 mg Tablet PO ×2 (09:21→17:34)
[2020-12-04] MEDS: spironolactone 25 mg Tablet PO ×2 (09:21→17:34)
[2020-12-04] MEDS: FUROsemide 20 mg Tablet PO (09:21)
--- NOTE | 2020-12-04 10:01 | PC.NURSE ---
blood bank called to let this nurse know blood is ready. unable to administer 1 unit due to pt leaving unit for surgery at this time.
[2020-12-04 10:35] LABS: Glucose Point of Care 300 mg/dL (70-110)
--- NOTE | 2020-12-04 10:43 | ANES.PREANE2 ---
Pre-Anesthetic Assessment Pre-Anesthetic Assessment: Height/Weight: Height 1.63 m Weight 86.183 kg Temp Pulse Resp BP Pulse Ox 98.6 F 70 18 146/74 98 12/04/20 06:55 12/04/20 07:57 12/04/20 07:57 12/04/20 06:55 12/04/20 07:57 Proposed Procedure: Operation Date: 12/04/20 11:30 Proposed Procedures p ORIF Femur(Left) - Marcio Barker MD Was Beta Lee taken within 24 hours: N/A Social: Social History: No alcohol and No tobacco Exam: Pre-Anes Outpt Exam: alert, oriented x 3, clear to auscultation bilaterally and regular rate & rhythm Airway: Submandibular: WNL Cervical ROM: WNL MP: 2 Dentition: False CV/HEM: CV/HEM: Anemia, CAD (CABG), CHF and HTN Hepatic: Hepatic: Cirrohsis Comments: MELLO, varices Metabolic: Metabolic: DM Anesthetic Plan: ASA status: 3 Anesthesia: Regional (specify below) Other: SAB Risk of > 500 ml blood loss (7ml/kg in children): Yes, adequate IV access and fluids planned Meds/Allergies Current Medications: Current Medications Generic Name Dose Route Start Last Admin Trade Name Freq PRN Reason Stop Dose Admin Escitalopram Oxala te 10 mg 12/04/20 09:00 12/04/20 09:21 Escitalopram 10 Mg Tablet PO 10 mg BID ABDIEL Administration Furosemide 20 mg 12/04/20 09:00 12/04/20 09:21 Furosemide 20 Mg Tablet PO 20 mg DAILY ABDIEL Administration Sodium Chloride 1,000 mls @ 50 ml s/hr 12/04/20 02:51 12/04/20 04:08 Sodium Chloride 0.9% IV 100 mls/hr .Q20H ABDIEL Administration Insulin Aspart 0 unit 12/04/20 08:00 12/04/20 09:21 Insulin Aspart 1 00 Unit/1 Ml SUBCUT 10 unit WM&BEDTIME ABDIEL Administration Protocol Morphine Sulfate 4 mg 12/04/20 02:51 12/04/20 05:45 Morphine 4 Mg/Ml Sdv 1 Ml IVP 4 mg Q4H PRN Administration SEVERE PAIN Nadolol 20 mg 12/04/20 09:00 12/04/20 09:21 Nadolol 20 Mg Ta blet PO 20 mg DAILY ABDIEL Administration Pantoprazole Sodiu m 40 mg 12/04/20 09:00 12/04/20 09:[address] 40 Mg Tablet PO 40 mg BID ABDIEL Administration Spironolactone 25 mg 12/04/20 09:00 12/04/20 09:21 Spironolactone 2 5 Mg Tablet PO 25 mg BID ABDIEL Administration PFSH Anesthesia PFSH: Medical History (Updated 12/04/20 @ 03:09 by Gabriel Anderson MD) Chronic iron deficiency anemia Gastric varices History of esophageal varices Hypertension Non-insulin dependent type 2 diabetes mellitus Thrombocytopenia Surgical History (Updated 12/04/20 @ 03:09 by Gabriel Anderson MD) History of appendectomy History of bilateral hip replacements History of cholecystectomy History of coronary artery bypass graft x 1 History of left knee replacement History of total hysterectomy Family History (Updated 12/04/20 @ 03:05 by Gabriel Anderson MD) Mother CAD (coronary artery disease) Diabetes CHF (congestive heart failure) Family/Other Cancer Social History (Updated 12/04/20 @ 03:05 by Gabriel Anderson MD) Smoking and tobacco status: never smoked Second hand smoke exposure: No Alcohol intake: never Substance/Drug Use: never Data Anesthesia CBC & Chem 7: 12/04/20 01:38 12/04/20 01:38 Other Labs: Laboratory Results - last 48 hr 12/04/20 12/04/20 12/04/20 01:38 01:38 05:38 WBC 5.7 RBC 2.78 L Hgb 7.9 L Hct 25.1 L MCV 90.3 MCH 28.4 MCHC 31.5 RDW 15.3 H Plt Count 106 L MPV 11.4 H Neut % (Auto) 77.0 Lymph % (Auto) 10.4 [place] % (Auto) 9.2 Eos % (Auto) 2.5 Baso % (Auto) 0.5 Neut # (Auto) 4.37 Lymph # (Auto) 0.6 L [place] # (Auto) 0.5 Eos # (Auto) 0.1 Baso # (Auto) 0.0 Nucleated RBC % (auto) 0 Nucleated RBCs # 0.0 PT 17.90 H INR 1.43 H Sodium 135 L Potassium 3.9 Chloride 101 Carbon Dioxide 26 Anion Gap 11.9 BUN 18 Creatinine 1.0 H GFR Calculation 55.0 L Glucose 269 H POC Glucose Calculated Osmolality 291 Calcium 8.1 L Total Bilirubin 1.1 AST 25 ALT 21 Alkaline Phosphatase 112 H NT-Pro-B Natriuret Pep Total Protein 5.8 L Albumin 3.0 L Globulin 2.8 Blood Type Rho(D) Type Antibody Screen Crossmatch 12/04/20 12/04/20 12/04/20 05:38 06:31 08:45 WBC RBC Hgb Hct MCV MCH MCHC RDW Plt Count MPV Neut % (Auto) Lymph % (Auto) [place] % (Auto) Eos % (Auto) Baso % (Auto) Neut # (Auto) Lymph # (Auto) [place] # (Auto) Eos # (Auto) Baso # (Auto) Nucleated RBC % (auto) Nucleated RBCs # PT INR Sodium Potassium Chloride Carbon Dioxide Anion Gap BUN Creatinine GFR Calculation Glucose POC Glucose 332 H Calculated Osmolality Calcium Total Bilirubin AST ALT Alkaline Phosphatase NT-Pro-B Natriuret Pep 472 H Total Protein Albumin Globulin Blood Type O Negative Rho(D) Type Negative / 0 Antibody Screen Negative Crossmatch See Detail 12/04/20 10:11 WBC RBC Hgb Hct MCV MCH MCHC RDW Plt Count MPV Neut % (Auto) Lymph % (Auto) [place] % (Auto) Eos % (Auto) Baso % (Auto) Neut # (Auto) Lymph # (Auto) [place] # (Auto) Eos # (Auto) Baso # (Auto) Nucleated RBC % (auto) Nucleated RBCs # PT INR Sodium Potassium Chloride Carbon Dioxide Anion Gap BUN Creatinine GFR Calculation Glucose POC Glucose 300 H Calculated Osmolality Calcium Total Bilirubin AST ALT Alkaline Phosphatase NT-Pro-B Natriuret Pep Total Protein Albumin Globulin Blood Type Rho(D) Type Antibody Screen Crossmatch Cardiac Studies: No Data to Display
--- NOTE | 2020-12-04 10:47 | PC.OT ---
OT orders received, will wait for patient to have surgery.
[2020-12-04] MEDS: sodium chloride 0.9% 1,000 ML 30 ML IV (11:04)
[2020-12-04] MEDS: clindamycin 600 MG/50 ML PREMIX 100 MG IV (11:26)
--- NOTE | 2020-12-04 11:33 | P.CONIM_ITS ---
Providers/Reason For Consult Consulting Physican/Specialty*: Marcio Barker MD; orthopedic surgery Reason for Consult*: Left supracondylar periprosthetic femur fracture Attending Physician: Marcio Barker MD History of Present Illness History of Present Illness Crissy Garzon is a 70 year old female who was visiting yesterday from [place] attending services for her mother. She apparently slipped and fell outside her mother's home here in [place] with immediate left knee pain. She was transferred to our emergency room where radiographs revealed a displaced periprosthetic left supracondylar femur fracture. She underwent left knee replacement in [facility] 11 years ago and describes hip replacements 2 years and thereafter. She denies any significant knee pain prior to this fall. She has multiple medical comorbidities and is admitted to the medicine service and orthopedics is consulted for surgical management of the fracture. Meds/Allergies Home Medications and Allergies Home Medications Medication Instructions Recorded Confirmed Last Taken Type cyclobenzaprine [Flexeril] 10 mg PO PRN 12/04/20 12/04/20 Unknown History escitalopram oxalate 10 mg PO BID 12/04/20 12/04/20 Unknown History esomeprazole magnesium [Nexium] 40 mg PO DAILY 12/04/20 12/04/20 Unknown History ferrous sulfate 324 mg PO DAILY 12/04/20 12/04/20 Unknown History furosemide [Lasix] 20 mg PO DAILY 12/04/20 12/04/20 Unknown History insulin NPH human semi-syn 50 unit SUBCUT DIRECTED 12/04/20 12/04/20 Unknown History [Novolin N (Semi-Synthetic)] metformin 500 mg PO BID 12/04/20 12/04/20 Unknown History nadolol 20 mg PO DAILY 12/04/20 12/04/20 Unknown History ropinirole 0.5 mg PO BEDTIME 12/04/20 12/04/20 Unknown History spironolactone 25 mg PO BID 12/04/20 12/04/20 Unknown History Allergies Allergy/AdvReac Type Severity Reaction Status Date / Time cefaclor [From Ceclor] Allergy ALGY-Anaphy Verified 12/03/20 23:18 laxis Current Medications Current Medications Generic Name Dose Route Start Last Admin Trade Name Freq PRN Reason Stop Dose Admin Escitalopram Oxalate 10 mg 12/04/20 09:00 12/04/20 09:21 Escitalopram 10 Mg Tablet PO 10 mg BID ABDIEL Administration Furosemide 20 mg 12/04/20 09:00 12/04/20 09:21 Furosemide 20 Mg Tablet PO 20 mg DAILY ABDIEL Administration Sodium Chloride 1,000 mls @ 50 mls/hr 12/04/20 02:51 12/04/20 04:08 Sodium Chloride 0.9% IV 100 mls/hr .Q20H ABDIEL Administration Sodium Chloride 1,000 mls @ 30 mls/hr 12/04/20 10:45 12/04/20 11:04 Sodium Chloride 0.9% IV 12/05/20 10:44 30 mls/hr .Q24H ABDIEL Administration Insulin Aspart 0 unit 12/04/20 08:00 12/04/20 09:21 Insulin Aspart 100 Unit/1 Ml SUBCUT 10 unit WM&BEDTIME ABDIEL Administration Protocol Morphine Sulfate 4 mg 12/04/20 02:51 12/04/20 05:45 Morphine 4 Mg/Ml Sdv 1 Ml IVP 4 mg Q4H PRN Administration SEVERE PAIN Nadolol 20 mg 12/04/20 09:00 12/04/20 09:21 Nadolol 20 Mg Tablet PO 20 mg DAILY ABDIEL Administration Pantoprazole Sodium 40 mg 12/04/20 09:00 12/04/20 09:[address] 40 Mg Tablet PO 40 mg BID ABDIEL Administration Spironolactone 25 mg 12/04/20 09:00 12/04/20 09:21 Spironolactone 25 Mg Tablet PO 25 mg BID ABDIEL Administration PFSH Acute PFSH: Medical History (Updated 12/04/20 @ 11:37 by Marcio Barker MD) Chronic iron deficiency anemia Gastric varices History of esophageal varices Hypertension Non-insulin dependent type 2 diabetes mellitus Thrombocytopenia Surgical History (Updated 12/04/20 @ 03:09 by Gabriel Anderson MD) History of appendectomy History of bilateral hip replacements History of cholecystectomy History of coronary artery bypass graft x 1 History of left knee replacement History of total hysterectomy Family History (Updated 12/04/20 @ 03:05 by Gabriel Anderson MD) Mother CAD (coronary artery disease) Diabetes CHF (congestive heart failure) Family/Other Cancer Social History (Updated 12/04/20 @ 03:05 by Gabriel Anderson MD) Smoking and tobacco status: never smoked Second hand smoke exposure: No Alcohol intake: never Substance/Drug Use: never Vitals/I&O/Wt Last Vital Signs Temp 98.4 F 12/04/20 10:25 Pulse 62 12/04/20 10:25 Resp 18 12/04/20 10:25 BP 154/59 12/04/20 10:25 Pulse Ox 100 12/04/20 10:25 12/03/20 12/04/20 12/04/20 22:59 06:59 14:59 Intake Total 0 / 0 Output Total 0 / 0 550 / 550 Balance 0 / 0 -550 / -550 Weight last 48 hrs Weight 190 lb Physical Exam Narrative: EXAM NARRATIVE: The patient is a pleasant elderly female in no obvious distress. She is alert and oriented to conversation. She answers questions appropriately. She has shortening of the left lower extremity and swelling and tenderness about the left distal femur. She has a palpable left dorsalis pedis pulse. She will flex extend her toes and ankle on the left. Sensation is intact in the left lower extremity He has no pain with palpation of her upper extremities or right lower extremity. Urinary Catheter Management^: Pandey: Cath Placed During This Visit: yes Reason for Continuing Indwelling Catheter: Required Immobilization for Trauma or Surgery or Anesthesia Urinary Catheter Date of Insertion: 12/04/20 Urinary Catheter Time of Insertion: 01:44 Data Imaging^: Other Xray: My impression: Radiographs of the left femur are reviewed. The patient has a displaced oblique fracture of the left distal femur above the level of a total knee. He has a previously placed left total hip. A&P Assessment and plan (1) Supracondylar fracture of left femur: Patient has a very displaced left supracondylar femur fracture. I discussed treatment options with her. I feel the best option for pain control and to allow her to resume ambulatory status would be open reduction and internal fixation. She has multiple medical comorbidities and I appreciate medicine assistance. She has a fairly significant anemia. She will be given tranexamic acid preoperatively and at the time of wound closure to minimize bleeding. I will type and screen her for blood products and would anticipate the use of blood products. I discussed risks with surgery including nonunion malunion. I told her these fractures are typically slower to heal. I discussed risk of deep venous thromboses and pulmonary emboli. I discussed the possibility of hardware that may need to be removed. I discussed risk of infection and use of perioperative antibiotics. I told her that it would be months before she is fully ambulatory and she may need to consider detention transfer. It may be difficult for her to travel back home for a few weeks. 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
[2020-12-04 12:11] LABS: Glucose Urine UA 4+ (Normal); Ketones Urine Negative (Negative); Protein Urine Neg (Negative); Urine Appearance Cloudy (CLEAR); Urine Color Straw (Yellow); pH Urine 5 (5-7)
[2020-12-04 12:12] LABS: Add Urine Microscopic? YES; Bilirubin Urine 1+ (Negative); Blood Urine Neg (Negative); Leukocyte Esterase Urine 1+ (Negative); Nitrate Urine Negative (Negative); Urobilinogen Urine 4 mg/dL (Negative)
[2020-12-04 12:13] LABS: Add Urine Culture? Yes; Bacteria Urine 4+ /hpf; Squamous Epithelial Cell Urine RARE /hpf (0-5); WBC Urine 15-25 /hpf (0-5)
--- NOTE | 2020-12-04 13:31 | PM.OP ---
Operative Report Date of procedure: December 04, 2020 Pre-op Diagnosis: Left periprosthetic distal femur fracture Post-op diagnosis: same Post-op Findings: The patient had an oblique comminuted periprosthetic left supracondylar femur fracture Procedure Done: Open reduction and internal fixation left distal femur Implants: Mimi 10 hole lateral femoral locking plate Pathology: none sent Surgeon: Marcio Barker Anesthesia: Nerve Block (Final) Estimated blood loss (mL): 200 Complications: none Disposition: PACU Procedure: Patient was taken to the operating room. She was given 600 mg of clindamycin in the spinal anesthesia. She is prepped and draped in the supine position with a bump under her left hip. A timeout was performed. An 8 cm long incision was made just beneath the joint line and extended proximally along the lateral femur. The iliotibial band was split and vastus lateralis elevated bring this to the fracture site. With longitudinal traction a [place] clamp could be placed across the fracture maintain the reduction. Single anterior lateral to posterior medial 6.0 cancellous screw was passed after over drilling the lateral cortex to provide compression across the fracture and maintain fracture length. The 10 hole plate was then passed submuscularly. Fluoroscopy was used to identify proper positioning over the lateral femur and provisionally held distally with K wires. The targeting guide was used to place a single unicortical cancellous screw through the most proximal hole establishing position of the plate on the femur. Intraoperative imaging showed satisfactory reduction. Distal locking screws times 6 were placed through the distal holes and 2 additional cancellous screws were placed distally. A single cancellous screw was placed just proximal to the fracture line compressing the femur to the diaphyseal portion of the plate a 6 single 6.0 cancellous screw was placed through the most distal diaphyseal hole in the plate providing compression across the fracture. For additional locking screws were placed proximally through stab wounds in the skin using the targeting guide.. Intraoperative imaging showed anatomic alignment of the fracture. The wound was irrigated with saline. Fascia savannah was closed with a running oh strata fix suture. Subcutaneous tissues were closed with a 2-0 Vicryl. Skin was closed with a running 3 oh strata fix. Steri-Strips were applied over wound edges. The wounds were covered with Xeroform gauze 4 x 4's and an ABD pad and a compressive web roll was applied. An Aj wrap was placed from toe to thigh. The patient was placed in a knee immobilizer, she was taken recovery room in stable condition
--- NOTE | 2020-12-04 13:43 | SUR.PHASEI ---
PT AWAKES TO VOICE, PT VERBALIZED NO PAIN PT MOVES BILAT TOES TO COMMAND, PT NODS THAT SHE HAS NORMAL SENSATION TO T -12 LEVEL. PT REMAINS VERY SLEEPY AND SLEEPS IF NOT DISTURBED, VSS.
--- NOTE | 2020-12-04 13:45 | ANE.PACU2 ---
Inpatient post-anesthesia follow up: Airway intact: Yes Vital signs: Temperature 99.2 F Pulse Rate [Monito r] 71 Pulse Rate 64 Respiratory Rate 19 Blood Pressure [Ri ght Arm] 159/63 Blood Pressure 137/61 Pulse Oximetry 96 Oxygen Delivery Me thod Room Air Oxygen Flow Rate 8 Fraction of Inspir ed Oxygen Hydration adequate: Yes Nausea and vomiting: No Pain level: 1 Mental status: Baseline
--- NOTE | 2020-12-04 13:49 | SUR.PHASEI ---
PT MUCH MORE AWAKE, PT MOVES BILAT FEET TO COMMAND, PT SATS DOWN TO 93% PT SLEEPS IF NOT DISTURBED PT PLACED ON 2LNC SATS QUICKLY UP TO 100%, RESP EVEN AND UNLABORED, VSS PETERS TO DD YELLOW URINE NOTED STATLCOCK TO RT THIGH , LT LEG IN LEG IMMOBILZER D/I
[2020-12-04] MEDS: sodium chloride 0.9% (100 ml) 100 ML 125 ML (14:54)
[2020-12-04] MEDS: oxyCODONE 5 mg IR Tab/Cap PO ×2 (15:27→20:52)
[2020-12-04 16:43] LABS: Glucose Point of Care 229 mg/dL (70-110)
[2020-12-04] MEDS: chlorhexidine gluconate 0.12% Btl 473 mL 30 ML MUCOUS MEM ×2 (17:33→22:29)
[2020-12-04] MEDS: sennosides-docusate Tablet 2 TAB PO (17:35)
[2020-12-04] MEDS: morphine 4 mg/mL SDV 1 mL 2 MG IVP (18:01)
[2020-12-04 20:48] LABS: Glucose Point of Care 392 mg/dL (70-110)
[2020-12-04] MEDS: ropinirole 0.25 mg Tablet 0.5 MG PO (20:52)
[2020-12-04] MEDS: clindamycin 900 MG/50 ML PREMIX 100 MG IV (21:04)
[2020-12-05] VITALS (12 sets, daily range): BP systolic 138–160; BP diastolic 65–83; PULSE 68–81; RESP 16–20; TEMP 36.3–37.1; O2SAT 95–97
[2020-12-05] MEDS: sodium chloride 0.9% 1,000 ML 100 ML IV (04:28)
[2020-12-05] MEDS: clindamycin 900 MG/50 ML PREMIX 100 MG IV ×2 (04:28→12:42)
[2020-12-05] MEDS: morphine 4 mg/mL SDV 1 mL 2 MG IVP ×2 (04:31→22:41)
[2020-12-05 07:52] LABS: Basophils % 0.4 %; Eosinophils # 0.2 10^3/uL (0.0-0.8); Eosinophils % 2.1 %; Hematocrit 25.7 % (37.0-47.0); Hemoglobin 8.3 g/dL (11.5-15.3); Lymphocytes # 0.6 10^3/uL (0.8-4.8); Lymphocytes % 7.8 %; Mean Corpuscular HGB Conc 32.3 g/dL (30.0-36.0); Mean Corpuscular Hemoglobin 28.1 pg (28.0-34.0); Mean Corpuscular Volume 87.1 fL (81-99); Mean Platelet Volume 11.3 fL (7.4-10.4); Monocytes # 0.8 10^3/uL (0.2-0.9); Monocytes % 11.6 %; Neutrophils # 5.47 10^3/uL (1.8-7.7); Neutrophils % 77.7 %; Nucleated Red Blood Cells % 0 %; Platelet Count 110 10^3/cmm (130-400); Red Blood Count 2.95 10^6/uL (4.1-5.3); Red Cell Distribution Width 15.8 % (12.1-15.1); White Blood Count 7.1 10^3/uL (4.0-10.0)
[2020-12-05] MEDS: sennosides-docusate Tablet 2 TAB PO (08:20)
[2020-12-05] MEDS: oxyCODONE 5 mg IR Tab/Cap PO ×2 (08:21→16:13)
[2020-12-05] MEDS: pantoprazole DR 40 mg Tablet PO ×2 (08:21→17:18)
[2020-12-05] MEDS: FUROsemide 20 mg Tablet PO (08:21)
[2020-12-05] MEDS: spironolactone 25 mg Tablet PO ×2 (08:22→17:18)
[2020-12-05] MEDS: escitalopram 10 mg Tablet PO ×2 (08:22→17:18)
[2020-12-05 08:29] LABS: Alanine Aminotransferase 18 U/L (0-33); Albumin Level 3.1 g/dL (3.5-5.2); Alkaline Phosphatase 84 IU/L (35-105); Anion Gap 14.2 (5-19); Aspartate Amino Transferase 21 U/L (0-32); Blood Urea Nitrogen 18 mg/dL (8-23); Calcium 8.1 mg/dL (8.5-10.5); Carbon Dioxide 22 mmol/L (22-29); Chloride 102 mmol/L (98-107); Globulin 2.8 g/dL (1.3-4.6); Glomerular Filtration Rate 71.1 mL/min (90-130); Glucose 315 mg/dL (65-115); Magnesium 1.6 mg/dL (1.7-2.3); Osmolality Calculated 292 mOsm/kg (285-295); Phosphorus 2.6 mg/dL (2.5-4.5); Potassium 4.2 mmol/L (3.5-5.1); Sodium 134 mmol/L (136-145); Thyroid Stimulating Hormone 0.86 uIU/mL (0.27-4.20); Total Bilirubin 3.8 mg/dL (0.15-1.2); Total Protein 5.9 g/dL (6.6-8.7)
[2020-12-05 08:52] LABS: Glucose Point of Care 398 mg/dL (70-110)
--- NOTE | 2020-12-05 09:09 | P.PN_ITS ---
Subjective Subjective: Interval history: Patient denies any complaints this morning including shortness of breath or chest pain. Denies abdominal pain. Had no bowel movement for the last 2 days. She had surgery performed yesterday. Discussed with Dr. Barker and patient had very minimal blood loss. Her hemoglobin is up to 8.3 this morning. Platelets are stable. Her urine indicates urinary tract infection. Vitals/I&O/Wt Last Vital Signs Temp 97.5 F L 12/05/20 07:59 Pulse 81 12/05/20 08:58 Resp 17 12/05/20 08:58 BP 138/65 12/05/20 07:59 Pulse Ox 95 12/05/20 08:58 12/04/20 12/05/20 12/05/20 21:59 06:59 14:59 Intake Total Output Total Balance Weight last 48 hrs Weight 86.183 kg Physical Exam Narrative: EXAM NARRATIVE: Lungs are clear and heart is regular. Abdomen is soft nontender with positive bowel sounds. Trace lower extremity edema Urinary Catheter Management^: Pandey: Cath Placed During This Visit: yes Reason for Continuing Indwelling Catheter: Required Immobilization for Trauma or Surgery or Anesthesia Urinary Catheter Date of Insertion: 12/04/20 Urinary Catheter Time of Insertion: 01:44 Data : 12/05/20 06:48 12/05/20 06:48 A&P Assessment and plan (1) Femoral distal fracture: -Secondary to fall, oblique comminuted distal femoral fracture, intact total knee prosthesis -Dr. Barker consulted -SCDs for DVT prophylaxis, anticoagulation contraindicated given esophageal, gastric varices, anemia, thrombocytopenia -Full code -PT OT -Morphine for pain control Status: Acute (2) Thrombocytopenia: Secondary to Mello, liver cirrhosis Status: Acute (3) Chronic iron deficiency anemia: Secondary to gastritis, gastric varices, she denies a history of esophageal variceal bleed, had a ablation a few weeks ago is due for another ablation in another 2 weeks, managed in [place] Status: Acute (4) Hypertension: Status: Acute (5) Non-insulin dependent type 2 diabetes mellitus: Continue low-dose sliding scale Status: Acute (6) Gastric varices: With history of ligation Status: Acute (7) History of esophageal varices: No history of band, ligation, no history of bleed Status: Acute (8) 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 Start patient on Primaxin for UTI. Awaiting culture results. Patient has anaphylactic reaction to cefaclor Start lactulose patient takes at home. Monitor CBC. Continue with physical therapy. Awaiting placement in nursing facility. Attestations Medical Necessity Statement*: Patient with UTI and femoral fracture requires close inpatient monitoring and treatment until deemed safe for discharge. 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
[2020-12-05] MEDS: lactulose oral liq 20 gm/30 mL UDC PO (09:44)
[2020-12-05] MEDS: magnesium sulfate premix 2 GM/50 ML PIGGYBACK IV (09:44)
--- NOTE | 2020-12-05 11:34 | PC.CHAP ---
Pastoral Care Encounter/Spiritual Assessment Type of Contact [] Declined motor analyst visit [] Patient/Family/Request visit [] Outpatient visit [] Follow-up visit [] Physician referral [] Code/Alert [x] Routine visit [] Staff referral [] Actively dying [] Patient sleeping [] Family support [] [] Out of room [] Palliative care [] [] Receiving care in room [] Pre-surgical visit [] Trauma [] Long length of stay [] ICU visit [] Other: Relational/Emotional Strength [x] Patient feels connected with others/family/visitors/staff [] Distress [] Loneliness/isolation [] Abandonment Spirituality of Patient [x] Person of Bev [x] Attends Protestant of their Bev [x] Believes in Prayer [] Reads Bible or Methodist materials [] There are Spiritual issues to be addressed 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 Fabricator Interventions [x] Prayer [x] Active listening [x] Non-anxious presence [x] Spiritual/emotional support [] Crisis/trauma care [] Spiritual counseling [] Bereavement support [] Provided bereavement packet [] Provided Bible/devotional materials [] Provided toy/stuffed animal, coloring book to patient or family member [] Provided Communion [] Anointing/[place] [] Salvation [x] Completed spiritual assessment [] Other: Impact on Illness or Injury [] Angry [] Fearful [] Anxious [] Often cries [] Exhaustion [] Unable to work [x] Unable to attend yazdanism [] Unable to walk/stand [] Unable to read [] Unable to drive [] Unable to eat/drink [] Unable to sleep [] Unable to be with family [] Patient intubated [] Other: Summary Pt's was visiting so motor analyst was able to meet with both. They were here for her mother's and she slipped on a porch, breaking her leg. Hoping to be released to a rehab center on Sunday. [place] and the rehab will be closer to their home. She said she has had her first Covid shot, will have second in a couple of weeks and then will be able to return to nondenominational. She has not attended since Covid and is looking forward to getting back to a place of yazdanism. Time spent with patient 20 m
[2020-12-05] MEDS: chlorhexidine gluconate 0.12% Btl 473 mL 30 ML MUCOUS MEM ×3 (11:56→21:30)
[2020-12-05 17:00] LABS: Estmated Average Glucose 143; Hemoglobin A1C 6.6 % (4.0-6.0)
[2020-12-06] VITALS (12 sets, daily range): BP systolic 115–167; BP diastolic 47–81; PULSE 71–82; RESP 16–20; TEMP 36–37.2; O2SAT 95–99
[2020-12-06 05:25] LABS: Basophils % 0.2 %; Eosinophils # 0.1 10^3/uL (0.0-0.8); Eosinophils % 2.8 %; Hematocrit 23.5 % (37.0-47.0); Hemoglobin 7.5 g/dL (11.5-15.3); Lymphocytes # 0.6 10^3/uL (0.8-4.8); Lymphocytes % 12.5 %; Mean Corpuscular HGB Conc 31.9 g/dL (30.0-36.0); Mean Corpuscular Hemoglobin 28.3 pg (28.0-34.0); Mean Corpuscular Volume 88.7 fL (81-99); Mean Platelet Volume 11.5 fL (7.4-10.4); Monocytes # 0.6 10^3/uL (0.2-0.9); Monocytes % 12.5 %; Neutrophils # 3.62 10^3/uL (1.8-7.7); Neutrophils % 71.6 %; Nucleated Red Blood Cells % 0 %; Platelet Count 105 10^3/cmm (130-400); Red Blood Count 2.65 10^6/uL (4.1-5.3); Red Cell Distribution Width 15.5 % (12.1-15.1); White Blood Count 5.1 10^3/uL (4.0-10.0)
[2020-12-06 05:42] LABS: Alanine Aminotransferase 17 U/L (0-33); Albumin Level 2.8 g/dL (3.5-5.2); Alkaline Phosphatase 86 IU/L (35-105); Anion Gap 12.8 (5-19); Aspartate Amino Transferase 17 U/L (0-32); Blood Urea Nitrogen 13 mg/dL (8-23); Calcium 8.1 mg/dL (8.5-10.5); Carbon Dioxide 24 mmol/L (22-29); Chloride 100 mmol/L (98-107); Globulin 2.8 g/dL (1.3-4.6); Glomerular Filtration Rate 71.1 mL/min (90-130); Glucose 419 mg/dL (65-115); Magnesium 1.9 mg/dL (1.7-2.3); Osmolality Calculated 294 mOsm/kg (285-295); Phosphorus 2.1 mg/dL (2.5-4.5); Potassium 3.8 mmol/L (3.5-5.1); Sodium 133 mmol/L (136-145); Total Protein 5.6 g/dL (6.6-8.7)
[2020-12-06] MEDS: morphine 4 mg/mL SDV 1 mL 2 MG IVP (06:56)
--- NOTE | 2020-12-06 07:43 | P.PN_ITS ---
Subjective Subjective: Interval history: Patient with large bowel movement last night. Knee immobilizer stain. Pain okay. Vitals/I&O/Wt Last Vital Signs Temp 98.5 F 12/06/20 07:21 Pulse 78 12/06/20 07:21 Resp 18 12/06/20 07:21 BP 160/72 12/06/20 07:21 Pulse Ox 96 12/06/20 07:21 12/05/20 12/06/20 12/06/20 22:59 06:59 14:59 Intake Total 2440 / 2780 200 / 2980 Output Total 1800 / 2100 1500 / 3600 Balance 640 / 680 -1300 / -620 Physical Exam Narrative: EXAM NARRATIVE: Left knee thigh incisions clean island dressing applied. Minimal swelling. Urinary Catheter Management^: Pandey: Cath Placed During This Visit: yes Reason for Continuing Indwelling Catheter: Required Immobilization for Trauma or Surgery or Anesthesia Urinary Catheter Date of Insertion: 12/04/20 Urinary Catheter Time of Insertion: 01:44 Data : 12/06/20 04:43 12/06/20 04:43 Micro: Microbiology 12/04/20 07:31 Urine Culture - Preliminary Urine,Clean Catch Gram Negative Rods A&P Assessment and plan (1) Supracondylar fracture of left femur: Status: Acute (2) Postoperative state: Patient to begin mobilization with therapy. She can be no more than touchdown weightbearing on the left. She is to wear her brace only when she is out of bed. She can take it off in bed and to work on range of motion. She will need follow-up in 4 weeks with x-ray. 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
[2020-12-06] MEDS: FUROsemide 20 mg Tablet PO (08:18)
[2020-12-06] MEDS: escitalopram 10 mg Tablet PO ×2 (08:20→17:34)
[2020-12-06] MEDS: pantoprazole DR 40 mg Tablet PO ×2 (08:20→17:34)
[2020-12-06] MEDS: spironolactone 25 mg Tablet PO ×2 (08:21→17:34)
[2020-12-06] MEDS: chlorhexidine gluconate 0.12% Btl 473 mL 30 ML MUCOUS MEM ×4 (09:24→20:37)
--- NOTE | 2020-12-06 12:05 | P.PN_ITS ---
Subjective Subjective: Interval history: She reports she is doing well. She was seen by orthopedic surgery this morning. They have been satisfied with her condition postoperatively. She is working a little bit with physical therapy. Restarted her lactulose yesterday, had a number of bowel movements, and so for today requested for it to be held. Vitals/I&O/Wt Last Vital Signs Temp 98.5 F 12/06/20 11:23 Pulse 71 12/06/20 11:23 Resp 18 12/06/20 11:23 BP 140/70 12/06/20 11:23 Pulse Ox 97 12/06/20 11:23 12/05/20 12/06/20 12/06/20 22:59 06:59 14:59 Intake Total 2440 / 2780 200 / 2980 240 / 240 Output Total 1800 / 2100 1500 / 3600 Balance 640 / 680 -1300 / -620 240 / 240 Physical Exam Narrative: EXAM NARRATIVE: at bedside Const: COMMON NORMALS: no acute distress, patient oriented x3 and alert GENERAL APPEARANCE: comfortable HENMT: COMMON NORMALS: oropharynx normal Neck/C-Spine: COMMON NORMALS: no JVD Resp: COMMON NORMALS: normal respiratory effort and clear to auscultation bilaterally AUSCULTATION: clear to auscultation bilaterally Cardio: COMMON NORMALS: no JVD, regular rhythm, S1 normal heart sound present, S2 normal heart sound present and No murmurs present (Cardio) RHYTHM: regular rhythm HEART SOUNDS: S1 normal heart sound present and S2 normal heart sound present GI: COMMON NORMALS: Normal to inspection, nondistended, normoactive bowel sounds present, Soft to palpation and non-tender PALPATION: Yes Soft to palpation Extremity: COMMON NORMALS: no joint enlargement and no pedal edema OTHER: LLE in immobilizer Neuro: COMMON NORMALS: patient oriented x3 and moves all extremities SENSORIUM/ORIENTATION: Yes alert Skin: COMMON NORMALS: no rashes or lesions noted GENERAL SKIN EXAM: no rashes or lesions noted Urinary Catheter Management^: Pandey: Cath Placed During This Visit: yes Reason for Continuing Indwelling Catheter: Required Immobilization for Trauma or Surgery or Anesthesia Urinary Catheter Date of Insertion: 12/04/20 Urinary Catheter Time of Insertion: 01:44 Data : 12/06/20 04:43 12/06/20 04:43 Micro: Microbiology 12/06/20 10:37 Occult Blood (FIT) - Final Stool Routine Collection 12/04/20 07:31 Urine Culture - Preliminary Urine,Clean Catch Gram Negative Rods A&P Assessment and plan (1) Acute anemia: As below. Status: Acute (2) Femoral distal fracture: Acute anemia. Hemoglobin down to 7.5. Likely multifactorial with chronic anemia, although does not appear to have active GI bleed with negative Hemoccult. Suspect blood loss secondary to fracture, surgery. Discussed with her . She is agreeable to go ahead and recheck the blood counts tonight. If further decreased to transfuse. Otherwise reassess at SNF. She has required transfusions in the past. Monitor for worsening anemia. Voiding trial if okay with orthopedics. Continue PT, OT. Status: Acute (3) Urinary tract infection: Gram-negative rods. Continue antibiotic. Follow-up culture results. Status: Acute (4) Thrombocytopenia: Secondary to Mello, liver cirrhosis Status: Acute (5) Chronic iron deficiency anemia: Follow-up with gastroenterology in [place]. 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: Managed in [place] Status: Acute (11) Congestive heart failure: She is unsure what type of heart failure she has, is on spironolactone and Lasix Status: Acute (12) History of coronary artery bypass graft x 1: Status: Inactive (13) CAD (coronary artery disease): No chest pain complaints Status: Acute Attestations Medical Necessity Statement*: Continue admission for assessment and management of acute anemia superimposed on chronic anemia, in the setting of left femoral fracture and repair and lady at high risk of complications with underlying cirrh osis of the liver, esophageal varices, CHF and other comorbidities. Also pending placement arrangements. 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
[2020-12-06] MEDS: oxyCODONE 5 mg IR Tab/Cap PO ×3 (12:23→22:57)
[2020-12-06] MEDS: ropinirole 0.25 mg Tablet 0.5 MG PO ×2 (20:37→20:38)
[2020-12-06] MEDS: cyclobenzaprine 10 mg Tablet PO (22:57)
[2020-12-07] VITALS (11 sets, daily range): BP systolic 119–151; BP diastolic 61–89; PULSE 68–80; RESP 16–18; TEMP 36.1–36.9; O2SAT 95–98
[2020-12-07 02:25] LABS: Basophils % 0.4 %; Eosinophils # 0.2 10^3/uL (0.0-0.8); Eosinophils % 3.8 %; Hematocrit 23.1 % (37.0-47.0); Hemoglobin 7.4 g/dL (11.5-15.3); Lymphocytes # 0.7 10^3/uL (0.8-4.8); Lymphocytes % 15.3 %; Mean Corpuscular Hemoglobin 28.1 pg (28.0-34.0); Mean Corpuscular Volume 87.8 fL (81-99); Mean Platelet Volume 11.8 fL (7.4-10.4); Monocytes # 0.6 10^3/uL (0.2-0.9); Monocytes % 11.9 %; Neutrophils # 3.26 10^3/uL (1.8-7.7); Neutrophils % 68.2 %; Nucleated Red Blood Cells % 0 %; Platelet Count 111 10^3/cmm (130-400); Red Blood Count 2.63 10^6/uL (4.1-5.3); Red Cell Distribution Width 15.6 % (12.1-15.1); White Blood Count 4.8 10^3/uL (4.0-10.0)
[2020-12-07 02:36] LABS: Slide Review Slide Review Perform
[2020-12-07 02:42] LABS: Alanine Aminotransferase 14 U/L (0-33); Albumin Level 2.6 g/dL (3.5-5.2); Alkaline Phosphatase 83 IU/L (35-105); Anion Gap 13.1 (5-19); Aspartate Amino Transferase 14 U/L (0-32); Blood Urea Nitrogen 17 mg/dL (8-23); Calcium 8.5 mg/dL (8.5-10.5); Carbon Dioxide 24 mmol/L (22-29); Chloride 100 mmol/L (98-107); Glomerular Filtration Rate 62.1 mL/min (90-130); Glucose 452 mg/dL (65-115); Magnesium 1.9 mg/dL (1.7-2.3); Osmolality Calculated 297 mOsm/kg (285-295); Phosphorus 2.9 mg/dL (2.5-4.5); Potassium 4.1 mmol/L (3.5-5.1); Sodium 133 mmol/L (136-145); Total Bilirubin 1.4 mg/dL (0.15-1.2); Total Protein 5.6 g/dL (6.6-8.7)
--- NOTE | 2020-12-07 05:47 | PC.NURSE ---
had an accident and wet bed while asleep
--- NOTE | 2020-12-07 07:59 | P.PN_ITS ---
Subjective Subjective: Interval history: Pain OK. Awaiting rehab trasnfer Vitals/I&O/Wt Last Vital Signs Temp 97.6 F 12/07/20 07:49 Pulse 71 12/07/20 07:49 Resp 17 12/07/20 07:49 BP 119/68 12/07/20 07:49 Pulse Ox 95 12/07/20 07:49 12/06/20 12/07/20 12/07/20 22:59 06:59 14:59 Intake Total 1320 / 1780 200 / 1980 Output Total 800 / 1500 250 / 1750 Balance 520 / 280 -50 / 230 Physical Exam Narrative: EXAM NARRATIVE: Dressing clean and dry. Expected knee/thigh swelling Urinary Catheter Management^: Pandey: Cath Placed During This Visit: yes, but has since been removed by the nurse Reason for Continuing Indwelling Catheter: Required Immobilization for Trauma or Surgery or Anesthesia Urinary Catheter Date of Insertion: 12/04/20 Urinary Catheter Time of Insertion: 01:44 Date Urinary Catheter Removed: 12/06/20 Time Urinary Catheter Discontinued: 13:19 Data : 12/07/20 02:05 12/07/20 02:05 Micro: Microbiology 12/04/20 07:31 Urine Culture - Final Urine,Clean Catch Klebsiella pneumoniae 12/06/20 10:37 Occult Blood (FIT) - Final Stool Routine Collection A&P Assessment and plan (1) Supracondylar fracture of left femur: Status: Acute Qualifiers: Encounter type: initial encounter Fracture type: closed Qualified Code(s): S72.452A - Displaced supracondylar fracture without intracondylar extension of lower end of left femur, initial encounter for closed fracture (2) Postoperative state: Continue to mobilize with therapy. Will need rehab/snf pacement. This will occur near patient's home in [place]. Will need FU with orthopedist there. Status: Acute Attestations Medical Necessity Statement*: as per medicine Coding Level of Care Code Acute Landscape Architect for g Fwd Diagnoses Supracondylar fracture of left femur S72.452A Encounter type: initial encounter Fracture type: closed Postoperative state Z98.890
[2020-12-07] MEDS: oxyCODONE 5 mg IR Tab/Cap PO ×3 (09:23→21:16)
[2020-12-07] MEDS: spironolactone 25 mg Tablet PO (09:25)
[2020-12-07] MEDS: escitalopram 10 mg Tablet PO ×2 (09:25→17:36)
[2020-12-07] MEDS: pantoprazole DR 40 mg Tablet PO ×2 (09:25→17:35)
[2020-12-07] MEDS: FUROsemide 20 mg Tablet PO (09:25)
[2020-12-07] MEDS: chlorhexidine gluconate 0.12% Btl 473 mL 30 ML MUCOUS MEM ×4 (09:28→20:14)
[2020-12-07 11:04] LABS: Glucose Point of Care 464 mg/dL (70-110)
--- NOTE | 2020-12-07 14:26 | PC.SOCIAL ---
Pg 2 IMM Explained to pt's daughter via phone, Pg 2 IMM. No questions voiced. Provided pt a copy. Signed, dated, & timed a copy & placed in chart.
[2020-12-07 16:14] LABS: Coronavirus Test Green County Not Detected
[2020-12-07 17:00] LABS: Glucose Point of Care 338 mg/dL (70-110)
[2020-12-07] MEDS: ropinirole 0.25 mg Tablet 0.5 MG PO (20:14)
[2020-12-07 20:45] LABS: Glucose Point of Care 348 mg/dL (70-110)
--- NOTE | 2020-12-07 20:53 | PM.PN ---
Subjective Subjective: Interval history: She is awaiting transfer to [facility] facility, although today was noted to have elevated blood glucose. Her hemoglobin is little bit lower compared to yesterday. She is also not in very good mood since had to be maintained under isolation while testing for coronavirus and so that meant her could not visit. She understands this is temporary, however, and with a negative result solution will be discontinued, and she would be able to transfer with her family to the [facility] facility. Vitals/I&O/Wt Last Vital Signs Temp 98.4 F 12/07/20 19:34 Pulse 73 12/07/20 19:34 Resp 16 12/07/20 19:34 BP 133/66 12/07/20 19:34 Pulse Ox 97 12/07/20 19:34 12/07/20 12/07/20 12/07/20 06:59 14:59 22:59 Intake Total 200 / 1980 240 / 240 560 / 800 Output Total 250 / 1750 200 / 200 200 / 400 Balance -50 / 230 40 / 40 360 / 400 Physical Exam Const: COMMON NORMALS: no acute distress, patient oriented x3 and alert ORIENTATION/CONSCIOUSNESS: Yes awake HENMT: COMMON NORMALS: oropharynx normal Neck/C-Spine: COMMON NORMALS: no JVD Resp: COMMON NORMALS: normal respiratory effort and clear to auscultation bilaterally AUSCULTATION: clear to auscultation bilaterally Cardio: COMMON NORMALS: no JVD, regular rhythm, S1 normal heart sound present, S2 normal heart sound present and No murmurs present (Cardio) RHYTHM: regular rhythm HEART SOUNDS: S1 normal heart sound present and S2 normal heart sound present GI: COMMON NORMALS: Normal to inspection, nondistended, normoactive bowel sounds present, Soft to palpation and non-tender PALPATION: Yes Soft to palpation Extremity: COMMON NORMALS: no joint enlargement and no pedal edema OTHER: LLE in immobilizer Neuro: COMMON NORMALS: patient oriented x3 and moves all extremities SENSORIUM/ORIENTATION: Yes alert Skin: COMMON NORMALS: no rashes or lesions noted GENERAL SKIN EXAM: no rashes or lesions noted Urinary Catheter Management^: Pandey: Cath Placed During This Visit: yes, but has since been removed by the nurse Reason for Continuing Indwelling Catheter: Required Immobilization for Trauma or Surgery or Anesthesia Urinary Catheter Date of Insertion: 12/04/20 Urinary Catheter Time of Insertion: 01:44 Date Urinary Catheter Removed: 12/06/20 Time Urinary Catheter Discontinued: 13:19 Data : 12/07/20 02:05 12/07/20 02:05 A&P Assessment and plan (1) Acute anemia: This morning hemoglobin down to 7.4, yesterday was 8, history morning 7.5 per discussed with her appears to be some fluctuation, possibly variation in the lab results. Overall appears to be stable. She is agreeable to follow-up with hemoglobin reassessment in several days at [facility] facility. Due to low hemoglobin currently not on pharmacologic VTE prophylaxis. Continue SCD. Continue mobilization. Status: Acute (2) Femoral distal fracture: Pending COVID-19 PCR today, awaiting placement. This evening came back negative, isolation discontinued, and should be able to transfer to [facility] facility in the morning. Will need follow-up of hemoglobin after discharge. Will need follow-up with orthopedics in [place]. Continue PT, OT. Status: Acute (3) Urinary tract infection: Klebsiella pneumoniae. Resistant to ampicillin. Allergic to cephalosporins. Discontinue Primaxin. Transition to ciprofloxacin. Status: Acute (4) Thrombocytopenia: Secondary to Mello, liver cirrhosis Status: Acute (5) Chronic iron deficiency anemia: Follow-up with gastroenterology in [place]. 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: Managed in [place] Status: Acute (11) Congestive heart failure: She is unsure what type of heart failure she has, is on spironolactone and Lasix Status: Acute (12) History of coronary artery bypass graft x 1: Status: Inactive (13) CAD (coronary artery disease): No chest pain complaints Status: Acute Attestations Medical Necessity Statement*: Continue admission following left lower extremity fracture and repair, transition to oral antibiotic, monitoring of acute on chronic anemia, with arrangements for transfer to [facility] facility for rehabilitation likely to occur in the morning now that COVID-19 PCR testing has come back negative. 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
[2020-12-07] MEDS: insulin glargine 100 units/1 mL 30 UNIT SUBCUT (21:15)
[2020-12-07] MEDS: ciprofloxacin 500 mg Tablet 250 MG PO (21:15)
[2020-12-07] MEDS: cyclobenzaprine 10 mg Tablet PO (21:16)
[2020-12-08] VITALS: BP 134/77; PULSE 69; RESP 16; TEMP 36.6; O2SAT 95
[2020-12-08 04:00] VITALS: BP 147/76; PULSE 69; RESP 16; TEMP 36.7; O2SAT 99
[2020-12-08 06:34] LABS: Glucose Point of Care 198 mg/dL (70-110)
[2020-12-08 07:18] VITALS: BP 143/68; PULSE 70; RESP 18; TEMP 36.7; O2SAT 96
[2020-12-08] MEDS: pantoprazole DR 40 mg Tablet PO (09:07)
[2020-12-08] MEDS: escitalopram 10 mg Tablet PO (09:07)
[2020-12-08] MEDS: ciprofloxacin 500 mg Tablet 250 MG PO (09:08)
[2020-12-08 09:14] VITALS: RESP 14; O2SAT 96
[2020-12-08] MEDS: oxyCODONE 5 mg IR Tab/Cap PO (09:14)
[2020-12-08 09:31] VITALS: PULSE 78; RESP 16; O2SAT 97
--- NOTE | 2020-12-08 10:35 | PM.DCS ---
Discharge Providers Date of Admission: 12/04/20 01:14 Date of Discharge: December 08, 2020 Attending Provider at Admission: Marcio Barker MD Attending Provider at Discharge: Marcio Barker MD Diagnoses at Discharge Discharge Diagnosis (1) Acute anemia: Status: Acute (2) Femoral distal fracture: Status: Acute (3) Urinary tract infection: Status: Acute (4) Thrombocytopenia: Status: Acute (5) Chronic iron deficiency anemia: Status: Acute (6) Hypertension: Status: Acute (7) Non-insulin dependent type 2 diabetes mellitus: Status: Acute (8) Gastric varices: Status: Acute (9) History of esophageal varices: Status: Acute (10) 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: Status: Acute (11) Congestive heart failure: Status: Acute (12) History of coronary artery bypass graft x 1: Status: Inactive (13) CAD (coronary artery disease): Status: Acute Reason for Visit Reason for Visit: left knee pain Hospital Course Hospital Course Pleasant 70-year-old lady with history of CAD, CABG, DM 2, CHF, MELLO, history of esophageal varices, following up for reassessment, as well as ablation possibly of AVM in [place] for which she is due in about 2 weeks, with chronic anemia, chronic thrombocytopenia, visiting here from out of town for a of her mother, having sustained a fall here, resulting in an oblique comminuted distal femoral fracture. She got 1 unit transfusion preoperatively. Was treated with antibiotic for urinary tract infection. Initially with Primaxin, subsequently switched over to ciprofloxacin, with Klebsiella pneumonia more than 100,000 CFU growing on culture. She underwent ORIF on 12/04. Has been improving well post surgery. Hemoglobin stabilized around 7.5-8. Hemoccult negative. Please follow-up in 3 days. She is encouraged to continue follow-up with gastroenterology in [place] for reevaluation. She is asked to remain touchdown weightbearing only on the left lower extremity. Maintain brace on, which may be taken off when she is resting in bed. She elected to complete her rehabilitation in [place] which is closer to home, and thus if he has not come back to follow-up with orthopedic surgeon here, is encouraged to set up with orthopedic surgery for follow-up closer to home, whom she ideally should see within 2 weeks. Physical Exam Narrative: EXAM NARRATIVE: Surrounded by family, asking to be discharged without delay due to a long drive Const: COMMON NORMALS: no acute distress, patient oriented x3 and alert GENERAL APPEARANCE: comfortable ORIENTATION/CONSCIOUSNESS: Yes awake HENMT: COMMON NORMALS: oropharynx normal Neck/C-Spine: COMMON NORMALS: no JVD Resp: COMMON NORMALS: normal respiratory effort and clear to auscultation bilaterally AUSCULTATION: clear to auscultation bilaterally Cardio: COMMON NORMALS: no JVD, regular rhythm, S1 normal heart sound present, S2 normal heart sound present and No murmurs present (Cardio) RHYTHM: regular rhythm HEART SOUNDS: S1 normal heart sound present and S2 normal heart sound present GI: COMMON NORMALS: Normal to inspection, nondistended, normoactive bowel sounds present, Soft to palpation and non-tender PALPATION: Yes Soft to palpation Extremity: COMMON NORMALS: no joint enlargement and no pedal edema OTHER: LLE in brace Neuro: COMMON NORMALS: patient oriented x3 and moves all extremities SENSORIUM/ORIENTATION: Yes alert Skin: COMMON NORMALS: no rashes or lesions noted GENERAL SKIN EXAM: no rashes or lesions noted Urinary Catheter Management^: Pandey: Cath Placed During This Visit: yes, but has since been removed by the nurse Reason for Continuing Indwelling Catheter: Required Immobilization for Trauma or Surgery or Anesthesia Urinary Catheter Date of Insertion: 12/04/20 Urinary Catheter Time of Insertion: 01:44 Date Urinary Catheter Removed: 12/06/20 Time Urinary Catheter Discontinued: 13:19 Discharge Data Data Completed and Pending: Completed Studies During Hospitalization Category Date Time Status CT cervical spin wo con* 94870 Urge nt Cat Scan 12/04/20 00:[address] head wo con* 7 0450 Urgent Cat Scan 12/04/20 00:[address] lower leg LT w o con* [id number] Urgen t Cat Scan 12/04/20 00:25 Completed XR chest 1V sobia ble 42736 Urgent Exams 12/03/20 23:44 Completed XR femur LT min 2 V* [id number] Routine Exams 12/04/20 Completed XR hip LT 1V wo/w pel [id number] Urgent Exams 12/03/20 23:25 Completed XR knee LT 3V* 73 562 Urgent Exams 12/03/20 23:25 Completed CV echo complete* [id number] Routine Ultrasound 12/04/20 03:22 Completed Labs from last 24 hours 12/08/20 12/07/20 12/07/20 06:31 20:31 16:57 POC Glucose 198 H 348 H 338 H Nasal/Oral COVID-1 9 PCR Crossmatch 12/07/20 12/06/20 12/04/20 10:58 14:10 08:45 POC Glucose 464 H Nasal/Oral COVID-1 9 PCR Not detected Crossmatch See Detail Vitals: Last Vital Signs Temp 98.0 F 12/08/20 07:18 Pulse 78 12/08/20 09:31 Resp 16 12/08/20 09:31 BP 143/68 12/08/20 07:18 Pulse Ox 97 12/08/20 09:31 Discharge Plan Discharge Patient Disposition: Xfer SNF Condition: Stable Prescriptions: [place] 5-325 mg tablet 1 tab PO Q8H PRN (Reason: pain) Qty: 9 RF: 0 ciprofloxacin HCl 500 mg Tablet 250 mg PO BID@0900,2100 Qty: 8 RF: 0 Continued ferrous sulfate 324 mg (65 mg iron) tablet,delayed release (DR/EC) 324 mg PO DAILY RF: 0 metformin 500 mg tablet 500 mg PO BID RF: 0 nadolol 20 mg tablet 20 mg PO DAILY RF: 0 spironolactone 25 mg tablet 25 mg PO BID RF: 0 ropinirole 0.5 mg tablet 0.5 mg PO BEDTIME RF: 0 Lasix 20 mg Tablet 20 mg PO DAILY RF: 0 Nexium 40 mg Capsule,Delayed Release(Dr/Ec) 40 mg PO DAILY RF: 0 escitalopram oxalate 10 mg PO BID RF: 0 Novolin N (Semi-Synthetic) 100 unit/mL Suspension 50 unit SUBCUT DIRECTED RF: 0 Flexeril 10 mg Tablet 10 mg PO PRN RF: 0 Discharge Orders: Discharge Order (Routine); Ordered 12/08/20 Ordered By: Juan Miguel Bellamy Referrals: Marcio Barker MD [Physician] - 12/20/20 9:45 am David Gee [Other] - 4-7 days Discharge Diet: Diabetic Discharge Activity: As per PT/OT instructions Activity Restrictions/Additional Instructions: Touchdown weightbearing on the left. Maintain brace in place while up. Can take it off in bed. Please set up follow-up with orthopedics in 2 weeks in [place] if not following up with Dr. Barker. Please reassess hemoglobin level in 3 days for anemia. Please resume follow-up with gastroenterology in [place] regarding cauterization of AVM and reassessment of varices. Limit daily acetaminophen to 2000 mg. 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
[2020-12-08 10:59] LABS: Glucose Point of Care 323 mg/dL (70-110)
[2020-12-08 12:21] VITALS: PULSE 78; RESP 16; O2SAT 97
== END 2020-12-08 10:50 | disposition skilled nursing facility (03) | DRG 481 ==
LOC: ER 23:39 → MEDSURG 12-04 02:05
PROVIDERS: Family Medicine; Internal Medicine; Admitting Provider Orthopaedic Surgery; Emergency Provider Physician Assistant; Visit Provider Orthopaedic Surgery
PROC: 0QSC04Z Reposition Left Lower Femur with Internal Fixation Device, Open Approach (ICD-10-PCS; principal; 2020-12-04 11:00)
DX: S72.452A Displaced supracondylar fracture without intracondylar extension of lower end of left femur, initial encounter for closed fracture (principal); D62 Acute posthemorrhagic anemia; N39.0 Urinary tract infection, site not specified; D69.6 Thrombocytopenia, unspecified; E11.9 Type 2 diabetes mellitus without complications; I11.0 Hypertensive heart disease with heart failure; I50.9 Heart failure, unspecified; Z95.1 Presence of aortocoronary bypass graft; I25.10 Atherosclerotic heart disease of native coronary artery without angina pectoris; K74.60 Unspecified cirrhosis of liver; K75.81 Nonalcoholic steatohepatitis (NASH); I86.4 Gastric varices; Z79.84 Long term (current) use of oral hypoglycemic drugs; W19.XXXA Unspecified fall, initial encounter; Y92.009 Unspecified place in unspecified non-institutional (private) residence as the place of occurrence of the external cause; Z96.652 Presence of left artificial knee joint
CPT/HCPCS: 36415; 36416; 36430; 51702; 70450; 71045; 72125; 73501; 73552; 73562; 73700; 76000; 80053; 81001; 82274; 82962; 83036; 83735; 83880; 84100; 84443; 85018; 85025; 85610; 86850; 86900; 86920; 87077; 87086; 87186; 87635; 93005; 93306; 94664; 96372; 96374; 97110; 97162; 97166; 97530; 97535; 99285; C1713; J0743; J1580; J1815 ×2; J2250; J2270; J2370; J2704; J3475; J3490; J7030; L1830; P9016; P9041